=== PATIENT | male | born 1995 | race African-American/Black ===

== ENCOUNTER 2016-06-05 19:16 | Emergency (ER) | payer BC, MEDICAID ==
[~2016-06-05] VITALS: Ht 193 cm; Wt 93.5 kg
[2016-06-05 20:05] VITALS: BP 117/84
[2016-06-05] MEDS ORDERED: PREDNISONE 20MG TABLET PO STA (20:09)
[2016-06-05] MEDS ORDERED: IPRATROPIUM BROMIDE (0.02%) 0.5MG/2.5ML NEB HHN STA (20:09)
[2016-06-05] MEDS ORDERED: ALBUTEROL (0.083%) 2.5MG/3ML NEB HHN STA (20:09)
== END 2016-06-05 22:08 | disposition home or self-care (01) ==
LOC: ER 21:57
DX: J45.901 Unspecified asthma with (acute) exacerbation (principal); J06.9 Acute upper respiratory infection, unspecified; Z98.890 Other specified postprocedural states; Z96.649 Presence of unspecified artificial hip joint
CPT/HCPCS: 94640; 99283; J7512; J7611; Z7610

== ENCOUNTER 2016-12-30 22:49 | Emergency (ER) | payer BC, MEDICAID ==
[~2016-12-30] VITALS: Ht 190.5 cm; Wt 88.0 kg
[2016-12-31 07:55] VITALS: BP 118/70
== END 2016-12-31 08:24 | disposition home or self-care (01) ==
LOC: ER 22:49
DX: K61.1 Rectal abscess (principal); F12.10 Cannabis abuse, uncomplicated
CPT/HCPCS: 99283

== ENCOUNTER 2017-11-03 13:37 | Emergency (ER) | payer BC, MEDICAID ==
[~2017-11-03] VITALS: Ht 193 cm; Wt 96.0 kg
[2017-11-03] MEDS ORDERED: IBUPROFEN 600MG TABLET PO ONE (15:00)
[2017-11-03] MEDS ORDERED: METHOCARBAMOL 500MG TABLET PO ONE (15:00)
[2017-11-03] MEDS ORDERED: KETOROLAC 30MG/ML VIAL IM ONE (15:15)
[2017-11-03 16:27] VITALS: BP 124/68
== END 2017-11-03 16:27 | disposition home or self-care (01) ==
LOC: ER 14:03
DX: M25.511 Pain in right shoulder (principal); J45.909 Unspecified asthma, uncomplicated; F12.10 Cannabis abuse, uncomplicated; Z98.890 Other specified postprocedural states
CPT/HCPCS: 73030; 96372; 99284; J1885; A4565

== ENCOUNTER 2019-02-02 13:50 | Emergency (ER) | payer BC, MEDICAID ==
[~2019-02-02] VITALS: Ht 188 cm; Wt 100.7 kg
[2019-02-02] MEDS ORDERED: KETOROLAC 60MG/2ML VIAL IM ONE (16:00)
[2019-02-02 17:02] VITALS: BP 133/60
== END 2019-02-02 17:42 | disposition home or self-care (01) ==
LOC: ER 13:50
DX: M54.2 Cervicalgia (principal); M25.511 Pain in right shoulder; F17.200 Nicotine dependence, unspecified, uncomplicated; V49.50XA Passenger injured in collision with unspecified motor vehicles in traffic accident, initial encounter; Y93.9 Activity, unspecified; Y92.410 Unspecified street and highway as the place of occurrence of the external cause; Z96.649 Presence of unspecified artificial hip joint
CPT/HCPCS: 71045; 72125; 73000; 73030; 96372; 99284; J1885

== ENCOUNTER 2019-11-08 12:34 | Emergency (ER) | payer BC, MEDICAID ==
[~2019-11-08] VITALS: Ht 190.5 cm; Wt 100.0 kg
[2019-11-08] MEDS ORDERED: HYDROCODONE/ACETAMINOPHEN 5/325MG TABLET PO ONE (13:15)
[2019-11-08 14:40] VITALS: BP 139/95
== END 2019-11-08 14:50 | disposition home or self-care (01) ==
LOC: ER 12:34
DX: S30.0XXA Contusion of lower back and pelvis, initial encounter (principal); S10.83XA Contusion of other specified part of neck, initial encounter; V49.49XA Driver injured in collision with other motor vehicles in traffic accident, initial encounter; Y93.89 Activity, other specified; Y92.89 Other specified places as the place of occurrence of the external cause; Y99.8 Other external cause status; J45.909 Unspecified asthma, uncomplicated; F12.10 Cannabis abuse, uncomplicated; Z98.890 Other specified postprocedural states
CPT/HCPCS: 72128; 72131; 93005; 99285

== ENCOUNTER 2024-12-11 09:51 | Emergency (ER) | payer MEDICAID ==
[~2024-12-11] VITALS: Ht 190.5 cm; Wt 103.0 kg
[2024-12-11 10:15] VITALS: O2SAT 99
[2024-12-11] MEDS ORDERED: ISOP30DR12 RIGHT EAR (10:44)
[2024-12-11] MEDS ORDERED: AM250 MT (10:44)
[2024-12-11 11:50] VITALS: BP 121/79; PULSE 56; RESP 18; TEMP 37; O2SAT 99
== END 2024-12-11 11:51 | disposition home or self-care (01) ==
LOC: ER 09:51
DX: H66.91 Otitis media, unspecified, right ear (principal); J45.909 Unspecified asthma, uncomplicated; F12.90 Cannabis use, unspecified, uncomplicated; Z79.899 Other long term (current) drug therapy
CPT/HCPCS: 99283

== ENCOUNTER 2024-12-19 23:22 | Emergency (ER) | payer MEDICAID ==
[~2024-12-19] VITALS: Ht 190.5 cm; Wt 103.0 kg
[~2024-12-19 23:22] MED LIST: AM250 MT; ISOP30DR12 RIGHT EAR
[2024-12-19 23:32] VITALS: O2SAT 98
[2024-12-19 23:42] VITALS: TEMP 36.7; O2SAT 99
[2024-12-20 00:26] VITALS: BP 126/87; PULSE 74; RESP 18
[2024-12-20] MEDS: KETOROLAC 15MG/ML VIAL IM ONE (00:26)
[2024-12-20] MEDS ORDERED: OFLO5DRO4 LEFT EAR (00:41)
[2024-12-20] MEDS ORDERED: AMOX1TAB16 MT (00:41)
== END 2024-12-20 00:52 | disposition home or self-care (01) ==
LOC: ER 23:22
DX: H66.91 Otitis media, unspecified, right ear (principal); H60.91 Unspecified otitis externa, right ear; J45.909 Unspecified asthma, uncomplicated; F12.90 Cannabis use, unspecified, uncomplicated; Z79.899 Other long term (current) drug therapy
CPT/HCPCS: 99283; 96372; J1885